=== PATIENT | male | born 1940 | race Caucasian/White ===

== ENCOUNTER 2022-06-21 09:32 | Observation (INO) | payer MEDICARE ==
[~2022-06-21] VITALS: Ht 172.7 cm; Wt 81.6 kg
[~2022-06-21 09:32] MED LIST: ASPIRIN CHEWABL81 MG PO; COREG 12.5MG12.5 MG PO; DULERA 200 MCG8.8 GM INH; HUMULIN N100 UNIT/1 SQ; HUMULIN R100 UNIT/1 INJ; HYDRALAZINE HC100 MG PO; HYDRALAZINE HCL25 MG PO; LASIX20 MG PO; LASIX40 MG PO; LEVOFLOXACIN500 MG PO; LIPITOR TAB 2020 MG PO; NORVASC10 MG PO; PLAVIX 75 MG TA75 MG PO; SPIRIVA RESPIMAT4 GM INH; TRAVATAN Z5 ML OU; TRUSOPT 2% OP S10 ML OU
[2022-06-21 10:37] LABS: HEMOGLOBIN 11.9 gm/dl (14.0-17.5); RED BLOOD COUNT 3.67 M/UL (4.20-5.50); WHITE BLOOD COUNT 7.1 K/UL (4.5-11.0)
[2022-06-21] MEDS ORDERED: BUMETANIDE2 MG PO (14:05)
[2022-06-21] MEDS ORDERED: ROCKLATAN 0.022.5 ML OP (14:06)
[2022-06-21] MEDS ORDERED: FLOMAX 0.4 MG0.4 MG PO (14:07)
[2022-06-21] MEDS ORDERED: SENNA-PLUS TAB1 EACH PO (14:08)
[2022-06-21] MEDS ORDERED: AVODART0.5 MG PO (14:09)
[2022-06-21] MEDS ORDERED: TRELEGY ELLIPT1 EACH INH (14:10)
[2022-06-21] MEDS ORDERED: HUMALOG100 UNIT/3 SQ (14:12)
[2022-06-21] MEDS ORDERED: TOUJEO MAX300 UNIT/1 SQ (14:12)
[2022-06-21] MEDS ORDERED: GABAPENTIN100 MG PO (14:13)
[2022-06-22 03:21] LABS: HEMOGLOBIN 11.6 gm/dl (14.0-17.5); RED BLOOD COUNT 3.6 M/UL (4.20-5.50); WHITE BLOOD COUNT 7.4 K/UL (4.5-11.0)
[2022-06-23 02:56] LABS: HEMOGLOBIN 10.1 gm/dl (14.0-17.5)
[2022-06-23 03:02] LABS: RED BLOOD COUNT 3.13 M/UL (4.20-5.50)
== END 2022-06-23 18:30 | disposition home or self-care (01) ==
LOC: ER1 09:32 → M/S 11:43 → CDU 11:43 → M/S 18:19
PROVIDERS: Emergency Medicine; Physician Assistant; ADMIT Internal Medicine Infectious Disease
DX: R55 Syncope and collapse (principal); R05.9 Cough, unspecified; N17.9 Acute kidney failure, unspecified; I12.9 Hypertensive chronic kidney disease with stage 1 through stage 4 chronic kidney disease, or unspecified chronic kidney disease; E11.22 Type 2 diabetes mellitus with diabetic chronic kidney disease; N18.4 Chronic kidney disease, stage 4 (severe); E87.6 Hypokalemia; E87.1 Hypo-osmolality and hyponatremia; I25.10 Atherosclerotic heart disease of native coronary artery without angina pectoris; J44.9 Chronic obstructive pulmonary disease, unspecified; E78.5 Hyperlipidemia, unspecified; E11.319 Type 2 diabetes mellitus with unspecified diabetic retinopathy without macular edema; Z20.822 Contact with and (suspected) exposure to COVID-19; Z95.1 Presence of aortocoronary bypass graft; Z95.5 Presence of coronary angioplasty implant and graft; Z86.73 Personal history of transient ischemic attack (TIA), and cerebral infarction without residual deficits; Z88.0 Allergy status to penicillin; Z88.5 Allergy status to narcotic agent; Z88.8 Allergy status to other drugs, medicaments and biological substances; Z87.891 Personal history of nicotine dependence; Z79.4 Long term (current) use of insulin; Z79.02 Long term (current) use of antithrombotics/antiplatelets; Z79.899 Other long term (current) drug therapy
CPT/HCPCS: ECHO; 36415; 70450; 71045; 71046; 80048; 80053; 82550; 82553; 82962; 83605; 83735; 83880; 84484; 85025; 87040; 93005; 93306; 96365; 96366; 96375; 96376; 97161; 97165; 97535; 99285; G0378; J0456; J0696; J7030; U0002